=== PATIENT | female | born 1995 | race Caucasian/White ===

== ENCOUNTER 2022-01-13 18:04 | Inpatient (IN) | payer OTHER ==
[2022-01-13 19:44] LABS: HEMOGLOBIN 9.4 gm/dl (12.3-15.3); RED BLOOD COUNT 3.3 M/UL (4.00-5.10)
[2022-01-13] MEDS ORDERED: AZESCO TABLET1 EACH PO (23:47)
[2022-01-14] MEDS ORDERED: HYDROCODON-ACE1 EAC4 PO (09:25)
[2022-01-14] MEDS ORDERED: COLACE 100MG C100 MG PO (09:25)
[2022-01-14] MEDS ORDERED: IBUPROFEN800 MG PO (09:25)
[2022-01-15 03:29] LABS: HEMOGLOBIN 6.3 gm/dl (12.3-15.3)
[2022-01-15] MEDS ORDERED: FERROUS SULFAT325 MG PO (13:49)
== END 2022-01-16 17:06 | disposition home or self-care (01) | DRG 806 ==
LOC: GENOP 18:04 → OB 18:15 → GENOP 18:16 → OB 01-14 12:08
PROVIDERS: ADMIT Obstetrics & Gynecology
PROC: 10E0XZZ Delivery of Products of Conception, External Approach (ICD-10-PCS; principal; 2022-01-14)
PROC: 3E033VJ Introduction of Other Hormone into Peripheral Vein, Percutaneous Approach (ICD-10-PCS; 2022-01-14)
DX: O99.02 Anemia complicating childbirth (principal); D62 Acute posthemorrhagic anemia; Z37.0 Single live birth; O99.334 Smoking (tobacco) complicating childbirth; Z3A.39 39 weeks gestation of pregnancy; Z20.822 Contact with and (suspected) exposure to COVID-19; Z28.310 Unvaccinated for COVID-19; Z83.3 Family history of diabetes mellitus; Z82.49 Family history of ischemic heart disease and other diseases of the circulatory system; Z80.0 Family history of malignant neoplasm of digestive organs; Z80.8 Family history of malignant neoplasm of other organs or systems
CPT/HCPCS: 36415; 81001; 82800; 85014; 85018; 85025; 93005; J1885; J2210; J2590; J3010; J3410; J3430; U0002